=== PATIENT | male | born 1935 | race Caucasian/White ===

== ENCOUNTER 2023-05-07 02:52 | Observation (INO) | payer OTHER, SELFPAY ==
[2023-05-06 23:13] VITALS: BMI 29.0
[2023-05-06 23:24] VITALS: BP 139/58
[2023-05-06 23:28] VITALS: BP 139/58
[2023-05-06 23:29] LABS: % Basophils 0.3 % (0-2); % Eosinophils 0.4 % (0-6); % Immature Granulocytes 0.3 % (0-0.5); % Lymphocytes 23.2 % (20.5-51.1); % Monocytes 13.6 % (1.7-9.3); % Neutrophils 62.2 % (42.2-75.2); Absolute Lymphocytes 1.8 10^3/uL (1.2-3.4); Absolute Neutrophils 4.8 10^3/uL (1.4-6.5); Hematocrit 40.7 % (39.0-52.0); Hemoglobin 14.4 g/dL (13.0-18.0); Mean Corp Hgb Conc. 35.4 g/dL (33.0-37.0); Mean Corpuscular Hgb 30.2 pg (27.0-31.0); Mean Corpuscular Volume 85.3 fL (80.0-94.0); Mean Platelet Volume 10.5 fL (7.4-10.4); Nucleated Red Blood Cells % 0 % (-); Platelet Count 188 10^3/uL (130-400); Red Blood Cell Count 4.77 10^6/uL (4.70-6.10); Red Cell Dist. Width 14.6 % (11.5-14.5); White Blood Cell Count 7.7 10^3/uL (4.8-10.8)
--- NOTE | 2023-05-06 23:34 | ED.GENMED ---
History of Present Illness
<KYE Escalante - Last Filed: 05/07/23 03:17>
General
Chief Complaint: Fall
Source: patient
Exam Limitations: none
Time Seen by Provider: 05/06/23 23:14
Nursing documentation reviewed up to this point in time: agreed with
Travel History
Have you had any contact with someone who has COVID-19?: No
Do you have any symptoms of coronavirus? Fever > 100 degrees, chills, cough, shortness of breath, sore throat, loss of taste or smell, muscle aches, or headache?: No
History of Present Illness
History of Present Illness:
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 Patient reports his first fall he lost his balance and fell backwards and hit his head on the closet door. The second fall, patient was coming out of bathroom and fell onto his left side
and hit his shoulder and legs. He reports he is having mild left sided leg pain. He has also had a low grade fever and cough for few days. He reports he has clear phlegm with his cough. He denies headache, body aches, chills, nausea, vomiting,
diarrhea or blurring vision. No LOC. Patient lives at home with . had similar cough and fever.
If applicable-neuro sx onset
Onset of symptoms known: Yes
Date of onset of symptoms: 05/06/23
Past History
<KYE Escalante - Last Filed: 05/07/23 03:17>
Past History
ED Past Medical History: HTN and Hypercholesterolemia
ED Past Surgical History: None
Social History
Tobacco: Non-smoker
Alcohol: None
Drug: None
Personal:
Living: with family
Review of Systems
<KYE Escalante - Last Filed: 05/07/23 03:17>
Review of Systems
Allergies reviewed?: Yes
All Other Systems: ROS reviewed and negative except as documented in HPI and ROS
Constitutional: Reports fever
EENT: Reports no symptoms
Respiratory: Reports cough
Cardiac: Reports no symptoms
ABD/GI: Reports no symptoms
: Reports no symptoms
Musculoskeletal: Reports muscle pain
Skin: Reports no symptoms
Neurological: Reports no symptoms
Endocrine: Reports no symptoms
Hematologic/Lymphatic: Reports no symptoms
Psychiatric: Reports no symptoms
Phy Exam
<KYE Escalante - Last Filed: 05/07/23 03:17>
General Physical Exam
General Presentation: well appearing and no apparent distress
General age: appears stated age
General Skin: warm and dry
General Habitus: normal
General Mental: alert
General Hydration: appears well hydrated
ENT Exam
ENT Exam: EOMI, TM's normal, pharynx normal and neck supple
Eye Exam
Eye Exam: PERRL, EOMI and conjunctiva normal
Cardiovascular Exam
Cardiovascular Exam: regular rate/rhythm, no edema, no gallop, no murmur and normal peripheral pulses
Pulmonary Exam
Pulmonary Exam: no respiratory distress and other (lower base with crackles )
Gastrointestinal Exam
Gastrointestinal Exam: normal bowel sounds, non tender, soft and non distended
Neurological Exam
Neurological Exam: alert and oriented x3
Musculoskeletal Exam
Musculoskeletal Exam: full ROM and neuro vasc intact
Skin Exam
Skin Exam: normal color, warm/dry and no rash
Psychiatric Exam
Psychiatric Exam: normal mood/affect
Course
<KYE Escalante - Last Filed: 05/07/23 03:17>
Orders/Labs/Results
Orders:
Orders
05/06/23 23:12
Electrocardiogram (*1) Urgent
Reason for Study: Other
Other Reason for Exam: Possible Sepsis
Cardiac Monitoring- Treatment ONCE
IV Insert/Care/Rem.- Treatment PRN
O2 Therapy [RESP] Urgent
Titrate/Wean O2 to maintain O2 sat greater than (%): 93
Special Instructions: TO MAINTAIN CONTINUOUS O2 SATS > OR = 93%
Pulse Ox/cont/shift [RESP] Urgent
Quantity: 1
Special Instructions: CONTINUOUS
05/06/23 23:19
COVID-19 Antigen Urgent
Source: Nasal Swab
Complete Blood Count/With Diff Urgent
Comprehensive Metabolic Panel Urgent
Lactic Acid Q4H
Comment: ON ICE, CANCEL 2ND ORDER IF FIRST LACTIC ACID LEVEL <2
Magnesium Urgent
Comment: ADD ON
Blood Culture Q30M
YOBANY Source: Blood/Venous
Specimen Description:
Comment: FROM 2 SEPARATE SITES
Blood Culture Q30M
YOBANY Source: Blood/Venous
Specimen Description:
Comment: FROM 2 SEPARATE SITES
05/06/23 23:45
0.9% Sodium Chloride 1000 ml [Nss] 2,500 ml IV NOW STA
Acetaminophen [Tylenol] 1,000 mg PO NOW STA
Potassium Chloride [KCl] 40 meq PO NOW STA
05/06/23 23:57
Influenza A+B Rapid Molecular Urgent
YOBANY Source: Nasal Swab
Specimen Description:
05/06/23 23:59
Add On- LAB Urgent
Tests Added?: Mg
Ipratropium/Albuterol Sulfate [Duoneb] 3 ml INH R NOW ONE
05/07/23 00:00
CT Head W/o Iv Contrast Urgent
Reason For Exam: fall, post head injury
05/07/23 00:07
CR Chest - 2 Views Urgent
Reason For Exam: suspected infection
CR Knee - Left 4 Or More View* Urgent
Reason For Exam: fall, ant knee pain, bruising
05/07/23 00:09
Ipratropium/Albuterol Sulfate [Duoneb] 3 ml .ROUTE .STK-MED ONE
05/07/23 01:59
Dexamethasone Sod Phosphate [Decadron] 10 mg IV NOW STA
Piperacillin/Tazo 3.375 Gram [Zosyn] 3.375 gram in 50 ml IV NOW
05/07/23 02:16
Calcium Gluconate 1 gram/100mL [Calcium Gluconate] 1 gram in 100 ml IV ONCE
05/07/23 02:18
Procalcitonin Stat
PCT Algorithmm Indication: Respiratory
05/07/23 02:20
Osmolality Serum [Serum Osmolality] Stat
Osmolality, Random Urine Stat
Urine Sodium Stat
05/07/23 02:41
Admit/Transfer Patient As Directed
Co-Sign Provider:
Level of Care: Observation services
Assign to:: Medical/Surgical
Physician / Group: Christine
Diagnosis: URI, possible PNA
05/07/23 02:42
Code Status As Directed
Resuscitation Status: Full Code
05/07/23 03:15
Lactic Acid Q4H
Comment: ON ICE, CANCEL 2ND ORDER IF FIRST LACTIC ACID LEVEL <2
Abnormal Lab Results
05/06/23
23:19
RDW 14.6 H %
(11.5-14.5)
MPV 10.5 H fL
(7.4-10.4)
Absolute Monos (auto) 1.0 H 10^3/uL
(0.1-0.6)
Monocytes % 13.6 H %
(1.7-9.3)
Sodium 130 L mmol/L
(135-145)
Potassium 3.3 L mmol/L
(3.5-5.1)
Chloride 94 L mmol/L
(98-107)
Glucose 111 H mg/dl
(70-99)
Lactic Acid 3.3 H mmol/L
(0.7-2.0)
Calcium 8.3 L mg/dl
(8.4-10.2)
05/06/23 23:19
05/06/23 23:19
Vital Signs
Initial and Last Documented VS:
Initial Vital Signs
Pulse Resp Pulse Ox
77 25 96
05/06/23 23:12 05/06/23 23:12 05/06/23 23:12
Last Documented Vital Signs
Temp Pulse Resp BP Pulse Ox
100.4 F H 74 19 135/61 94
05/06/23 23:13 05/07/23 02:42 05/07/23 02:42 05/07/23 02:42 05/07/23 02:42
<Carmen Man, DO - Last Filed: 05/07/23 02:04>
Orders/Labs/Results
Orders:
Orders
05/06/23 23:12
Electrocardiogram (*1) Urgent
Reason for Study: Other
Other Reason for Exam: Possible Sepsis
Cardiac Monitoring- Treatment ONCE
IV Insert/Care/Rem.- Treatment PRN
O2 Therapy [RESP] Urgent
Titrate/Wean O2 to maintain O2 sat greater than (%): 93
Special Instructions: TO MAINTAIN CONTINUOUS O2 SATS > OR = 93%
Pulse Ox/cont/shift [RESP] Urgent
Quantity: 1
Special Instructions: CONTINUOUS
05/06/23 23:19
COVID-19 Antigen Urgent
Source: Nasal Swab
Complete Blood Count/With Diff Urgent
Comprehensive Metabolic Panel Urgent
Lactic Acid Q4H
Comment: ON ICE, CANCEL 2ND ORDER IF FIRST LACTIC ACID LEVEL <2
Magnesium Urgent
Comment: ADD ON
Blood Culture Q30M
YOBANY Source: Blood/Venous
Specimen Description:
Comment: FROM 2 SEPARATE SITES
Blood Culture Q30M
YOBANY Source: Blood/Venous
Specimen Description:
Comment: FROM 2 SEPARATE SITES
05/06/23 23:45
0.9% Sodium Chloride 1000 ml [Nss] 2,500 ml IV NOW STA
Acetaminophen [Tylenol] 1,000 mg PO NOW STA
Potassium Chloride [KCl] 40 meq PO NOW STA
05/06/23 23:57
Influenza A+B Rapid Molecular Urgent
YOBANY Source: Nasal Swab
Specimen Description:
05/06/23 23:59
Add On- LAB Urgent
Tests Added?: Mg
Ipratropium/Albuterol Sulfate [Duoneb] 3 ml INH R NOW ONE
05/07/23 00:00
CT Head W/o Iv Contrast Urgent
Reason For Exam: fall, post head injury
05/07/23 00:07
CR Chest - 2 Views Urgent
Reason For Exam: suspected infection
CR Knee - Left 4 Or More View* Urgent
Reason For Exam: fall, ant knee pain, bruising
05/07/23 00:09
Ipratropium/Albuterol Sulfate [Duoneb] 3 ml .ROUTE .STK-MED ONE
05/07/23 01:59
Dexamethasone Sod Phosphate [Decadron] 10 mg IV NOW STA
Piperacillin/Tazo 3.375 Gram [Zosyn] 3.375 gram in 50 ml IV NOW
05/07/23 02:16
Calcium Gluconate 1 gram/100mL [Calcium Gluconate] 1 gram in 100 ml IV ONCE
05/07/23 02:18
Procalcitonin Stat
PCT Algorithmm Indication: Respiratory
05/07/23 02:20
Osmolality Serum [Serum Osmolality] Stat
Osmolality, Random Urine Stat
Urine Sodium Stat
05/07/23 02:41
Admit/Transfer Patient As Directed
Co-Sign Provider:
Level of Care: Observation services
Assign to:: Medical/Surgical
Physician / Group: Christine
Diagnosis: URI, possible PNA
05/07/23 02:42
Code Status As Directed
Resuscitation Status: Full Code
05/07/23 03:15
Lactic Acid Q4H
Comment: ON ICE, CANCEL 2ND ORDER IF FIRST LACTIC ACID LEVEL <2
Abnormal Lab Results
05/06/23
23:19
RDW 14.6 H %
(11.5-14.5)
MPV 10.5 H fL
(7.4-10.4)
Absolute Monos (auto) 1.0 H 10^3/uL
(0.1-0.6)
Monocytes % 13.6 H %
(1.7-9.3)
Sodium 130 L mmol/L
(135-145)
Potassium 3.3 L mmol/L
(3.5-5.1)
Chloride 94 L mmol/L
(98-107)
Glucose 111 H mg/dl
(70-99)
Lactic Acid 3.3 H mmol/L
(0.7-2.0)
Calcium 8.3 L mg/dl
(8.4-10.2)
05/06/23 23:19
05/06/23 23:19
Vital Signs
Initial and Last Documented VS:
Initial Vital Signs
Pulse Resp Pulse Ox
77 25 96
05/06/23 23:12 05/06/23 23:12 05/06/23 23:12
Last Documented Vital Signs
Temp Pulse Resp BP Pulse Ox
100.4 F H 74 19 135/61 94
05/06/23 23:13 05/07/23 02:42 05/07/23 02:42 05/07/23 02:42 05/07/23 02:42
<KYE Escalante - Last Filed: 05/07/23 03:17>
MDM/Problems Addressed
Differential Diagnosis Includes:
URI
PNA
Viral
Fall in elderly
<Carmen Man DO - Last Filed: 05/07/23 02:04>
*Radiology
Radiology exam reviewed: preliminary read by ED provider
*Pulse Oximetry
Patient hypoxic: no
*[employer] Gatherer Interpretation
Rate: normal
Interpretation: normal
Rhythm: sinus
*Critical Care Note
Total Time (30-74mins, 75-104mins- exclusive of procedures): Not Applicable
ED Attending Note
<KYE Escalante - Last Filed: 05/07/23 03:17>
-
Portions of this chart may have been created with voice recognition software.� Occasional wrong word or��sound alike� substitutions may have occurred due to the inherent limitations of voice recognition software.
<Carmen Man DO - Last Filed: 05/07/23 02:04>
ED Attending Note
Patient seen and examined by attending physician: Yes
I performed the substantive portion of visit, reviewed & personally made and approve the management plan that is documented in note by myself or PIA.: Yes
I performed a history and physical exam of patient and discussed management with resident, I reviewed resident's note and agree with documented findings and plan of care.: Yes
ED Attending Note:
88-year-old gentleman who resides at home with his . 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 He does admit to progressive slow
deconditioning, difficulty with ambulation and admits to several month history of bilateral leg and bilateral hand shaking, intention tremor in nature.
More recently however he developed URI symptoms 4 to 5 days ago, contracted from his who began with similar URI symptoms 1 week ago. She has been evaluated by her PCP and diagnosed with a viral URI. Reportedly COVID testing on his was
negative. He has been taking Mucinex over the past 4 days for his symptoms.
This morning, while using his walker he lost his balance, falling backwards onto his buttocks and striking the back of his head on the bathroom door. He denies loss of consciousness. He did require ambulance service to help him stand but declined
ED evaluation at that time. This evening however he lost his balance again falling onto his left side injuring his left knee and left posterior shoulder. He denies recurrent head injury but again was unable to stand requiring EMS and at this time
agreeable to ED evaluation. He has had a frequent harsh nonproductive cough over the past 4 to 5 days, poor oral intake over the past several days but denies nausea nor vomiting, no diarrhea nor constipation.
He denies headache, denies neck nor back pain, denies chest pain.
He takes no anticoagulants save for low-dose aspirin.
Upon arrival to the ED noted to be febrile with oral temperature of 100.4 �F.
GENERAL: 88-year-old gentleman appears his stated age, awake and alert, appears in mild distress. Frequent harsh nonproductive cough is noted. Mild nasal congestion is noted. Son is accompanying.
EYE: pupils equal and reactive. anicteric. There is soft tissue contusion with superficial abrasion left posterior parietal region. Mild local tenderness to palpation.
NECK: Supple, nontender, no midline bony tenderness, no meningismus, no significant adenopathy.
ENT: posterior pharynx is clear, oral mucosa is dry. Mild clear rhinorrhea.
CARDIAC: Regular rate and rhythm. no murmur.
LUNGS: Frequent harsh nonproductive cough. Mild resting tachypnea. Scattered end expiratory wheezing with fine rhonchi left base. There is a small superficial abrasion left posterior shoulder as well as approximately 10 cm superficial abrasion
right posterior scapular region. No focal tenderness to palpation. No palpable crepitus.
ABDOMEN: Soft, nondistended, without focal tenderness, no r/g, no cvat. normoactive BS.
NEUROLOGICAL: Alert and oriented x3, significant chronic atrophy of right lower extremity with orthopedic brace in place right lower leg.
SKIN: Mildly hot to touch and dry, normal color, skin intact. No rash.
MUSCULOSKELETAL: No C/C/E. peripheral pulses are full and equal b/l. There is mild ecchymosis, mild soft tissue swelling left anterior knee with mild local tenderness to palpation. No effusion, no crepitus. Full knee range of motion with
increased pain with flexion greater than 90 degrees. There is no hip tenderness nor thigh tenderness.
PSYCH: Normal and appropriate interaction.
Patient presents after suffering 2 mechanical falls today.
He has history of polio, chronic ambulatory dysfunction requiring walker for ambulation.
Several history of URI and found to be febrile, frequent cough and physical exam concerning for pneumonia left base.
Concern for sepsis/SIRS.
Acute on chronic ambulatory dysfunction.
Recent head injury, concern for intracranial injury thus will check CT of the head.
Left knee contusion, will check x-ray left knee concern for occult patellar fracture.
Will check chest x-ray.
Labs thus far reveal normal white blood cell count, normal H&H.
Mild hyponatremia, mild hypokalemia�likely related to dehydration, poor oral intake, increase in insensible losses with cough and fever.
Lactic acid mildly elevated at 3.3.
Will check COVID and influenza.
Thus far remains hemodynamically stable but meets SIRS criteria.
Will initiate IV normal saline solution fluid bolus, replete potassium orally. Will check magnesium level.
Will give DuoNeb nebulizer for cough.
Due to significant generalized weakness, recurrent falls patient is at significant risk for recurrent falls thus unsafe to return home and will require acute hospitalization.
05/07/2023 0202 AM
Patient continues with frequent cough now productive of whitish thin phlegm.
Repeat Esvin Berkowitz exam he has increased air movement with harsh expiratory wheezing bilaterally, rhonchi bibasilar.
Chest x-ray does not show definitive infiltrate but concern for occult pneumonia thus will initiate IV antibiotics and will initiate IV Decadron for wheezing and continue nebulizer treatments.
CT of the head is unremarkable.
Left knee x-ray is unremarkable.
Will admit to hospitalist service.
Discharge Plan
Departure
Patient Disposition: Admit
Date of Disposition: 05/07/23
Time of Disposition: 02:00
Admit to: Med/Surg
Admit to doctor: Christine
Presentation/result/management discussed w/ accepting MD/DO: Hospitalist
Condition: Serious
Discharge Problem:
Acute asthmatic bronchitis, SIRS (systemic inflammatory response syndrome), Falls frequently, acute on chronic ambulatory dysfunction, Postpolio syndrome, Acute hypokalemia, Acute hyponatremia
Interventions
Interventions:
*Risk Screen - Suicide Last Done: 05/06/23 23:13
*General Assessment Last Done: 05/06/23 23:13
*Neglect/Abuse Screening Last Done: 05/06/23 23:13
ED- Fall Risk Assessment Last Done: 05/07/23 00:44
*ED COVID-19 Vaccine History Last Done: 05/06/23 23:13
ED-Musculoskeletal Assessment Last Done: 05/07/23 00:44
ED- Neurological Assessment Last Done: 05/07/23 00:44
ED-Skin Assessment Last Done: 05/07/23 00:44
[2023-05-06 23:39] LABS: Lactic Acid 3.3 mmol/L (0.7-2.0)
[2023-05-06 23:41] LABS: ALT (SGPT) 27 U/L (0-50); AST (SGOT) 33 U/L (17-59); Albumin 3.9 g/dl (3.5-5.0); Alkaline Phosphatase 99 U/L (38-126); Blood Urea Nitrogen 19 mg/dl (9-20); Calcium 8.3 mg/dl (8.4-10.2); Carbon Dioxide 27 mmol/L (22-30); Chloride 94 mmol/L (98-107); Estimated Creatinine Clearance 59 ml/min; Glucose 111 mg/dl (70-99); Potassium 3.3 mmol/L (3.5-5.1); Sodium 130 mmol/L (135-145); Total Bilirubin 0.9 mg/dl (0.2-1.3); Total Protein 6.6 g/dl (6.3-8.2); eGFR > 60.00
[2023-05-06 23:49] LABS: COVID-19 Antigen Negative (Negative)
[2023-05-06] MEDS: TYLENOL 1000 MG PO (23:55)
[2023-05-06] MEDS: NSS 2500 ML IV (23:56)
[2023-05-06] MEDS: KCL 40 MEQ PO (23:56)
[2023-05-07] VITALS: BP 185/59
[2023-05-07] MEDS: DUONEB 3 ML INH ×3 (00:10→19:09)
[2023-05-07 00:37] LABS: Magnesium 1.9 mg/dl (1.6-2.3)
--- NOTE | 2023-05-07 02:14 | HPS.HSE ---
Family Physician
-
Family Physician: Jimmy Antonio
Chief Complaint
-
Falls
History of Present Illness
88 y/o M with PMHx:
Essential HTN
HLD
Polio
Chronic ambulatory dysfunction
Who presents after 2 recent falls, one of which involved head trauma. Patient mentions over the last week he has had cough productive of clear sputum. Denies fever or shortness of breath. His also had a viral UTI. Denies any other acute
complaints. Denies chest pain, nausea, vomiting, diarrhea, abdominal pain.
Medical History
Past Medical History
Past Medical History: Reports Other (as per HPI)
Past Surgical History: Reports Other (N/A)
Social History
Tobacco: Non-smoker
Alcohol: None
Drug: None
Family History
Family History: Not pertinent
Allergies / Home Medications
Allergies reflects when Allergies were last updated in [facility].
Home Medications with original date entered in [facility]
Allergy/Medication List:
Allergies
Allergy/AdvReac Type Severity Reaction Status Date / Time
No Known Allergies Allergy Verified 07/10/18 01:13
Home Medications
aspirin 81 mg tablet,delayed release (Aspir-Low) 81 mg PO DAILY 04/30/18
coenzyme Q10 100 mg capsule 100 mg PO DAILY 04/30/18
vitamins A,C,W-ebxr-qyhtwj 4,296 mcg-226 mg-90 mg capsule (PreserVision AREDS) 1 cap PO BID 04/30/18
atorvastatin 40 mg tablet 40 mg PO QPM ##30 05/02/18
carvedilol 3.125 mg tablet 3.125 mg PO BID ##60 05/02/18
cholecalciferol (vitamin D3) 50 mcg (2,000 unit) tablet 2,000 unit PO HS 05/28/18
lisinopril 5 mg tablet 40 mg PO DAILY 05/08/19
hydrochlorothiazide 25 mg tablet 25 mg PO DAILY 05/06/23
tamsulosin 0.4 mg capsule (Flomax) 0.4 mg PO DAILY 05/06/23
Review of Systems
-
History Source: Patient
A 12 point ROS was completed and negative except as noted: Yes
Physical Exam
Vital Signs
Vital Signs
Temp Pulse Resp BP Pulse Ox
100.4 F H 66 22 185/59 93
05/06/23 23:13 05/07/23 00:30 05/07/23 00:30 05/07/23 00:00 05/07/23 00:30
Physical Exam
General: Other (.)
Laboratory Results
-
05/06/23 23:19
05/06/23 23:19
Laboratory Results
Lactic Acid 3.3 mmol/L (0.7-2.0) H 05/06/23 23:19
Total Bilirubin 0.9 mg/dl (0.2-1.3) 05/06/23 23:19
AST 33 U/L (17-59) 05/06/23 23:19
ALT 27 U/L (0-50) 05/06/23 23:19
Alkaline Phosphatase 99 U/L (38-126) 05/06/23 23:19
Impression/Plan
-
Gen: NAD, AAOx3.
Eyes: EOMI, no scleral icterus.
Neck: supple.
CV: RRR, +S1/S2, no m/r/g.
Resp: Mild rhonchi bilaterally
Abd: +BS, soft, NT, ND
Skin: No rashes. Abrasion right upper back.
Neuro: CN 2-12 intact, non-focal.
Psych: Normal mood and affect.
CXR (read by me, official read pending): possible, subtle, RLL infiltrate
CT brain: No acute intracranial abnormality
URI with possible RLL PNA:
-COVID/Flu NEG
-currently saturating well on RA
-Await official chest x-ray read
-check Procal
-Decadron 10mg IV given in ED, no need to continue with steroids
-Zosyn given by ER, continue with Rocephin for now
-Duonebs PRN
Essential HTN:
-stop HCTZ
-cont Lisinopril/Coreg
Other problems:
Hyponatremia: Stop HCTZ, IVFs, check Serum/urine Osm, Radha
Hypokalemia: s/p 40meq K in ER
Hypocalcemia: 1g IV Ca
FULL/Lovenox
[2023-05-07] MEDS: DECADRON 10 MG IV (02:21)
[2023-05-07] MEDS: ZOSYN 50 IV (02:21)
[2023-05-07] MEDS: CALCIUM GLUCONATE 100 IV (02:23)
[2023-05-07 02:42] VITALS: BP 135/61
--- NOTE | 2023-05-07 02:46 | EDRN ---
Patient in continent to urine, changed brief and linen, pulled up in bed and new brief placed on patient. Patient did use urinal as well, which was left at bedside for patient.
[2023-05-07 03:42] LABS: Osmolality Serum 284 mOsm/kg (275-300)
[2023-05-07 03:45] LABS: Lactic Acid 1.1 mmol/L (0.7-2.0)
[2023-05-07 04:07] LABS: Procalcitonin < 0.05 ng/ml (0.0-0.25)
[2023-05-07 04:16] VITALS: BP 138/69; BMI 28.5
--- NOTE | 2023-05-07 04:20 | PTCARENOTE ---
Pt arrived from ED via stretcher and pulled over to bed. Pt is AAOx3, VSS, w/o complaints of pain. Pt is oriented to room resting comfortably with call mohamud within reach.
[2023-05-07] MEDS: NSS 1000 IV ×2 (04:30→15:13)
[2023-05-07 05:33] LABS: Osmolality Urine 199 mOsm/kg (300-900)
[2023-05-07 05:35] LABS: Urine Sodium 60 mmol/L (30-90)
[2023-05-07] MEDS: STERILE WATER FOR INJECTION 10 ML IV (05:45)
[2023-05-07] MEDS: ROCEPHIN 1000 MG IV (05:45)
[2023-05-07 07:25] VITALS: BP 116/44
[2023-05-07] MEDS: ASPIR LOW (ENTERIC COATED) 81 MG PO (08:18)
[2023-05-07] MEDS: COREG 3.125 MG PO ×2 (08:18→21:01)
[2023-05-07] MEDS: ZESTRIL 40 MG PO (08:19)
[2023-05-07] MEDS: MIRALAX 17 GRAMS PO (08:19)
[2023-05-07] MEDS: SENOKOT 8.59999999999999964 MG PO (08:19)
[2023-05-07] MEDS: FLOMAX 0.400000000000000022 MG PO (08:19)
[2023-05-07] MEDS: DESENEX/MITRAZOL/ZEASORB 1 APPLIC TOPICAL ×2 (08:24→20:57)
[2023-05-07 08:42] LABS: Blood Urea Nitrogen 15 mg/dl (9-20); Calcium 8.1 mg/dl (8.4-10.2); Carbon Dioxide 24 mmol/L (22-30); Chloride 102 mmol/L (98-107); Estimated Creatinine Clearance 67 ml/min; Glucose 122 mg/dl (70-99); Potassium 3.7 mmol/L (3.5-5.1); Sodium 136 mmol/L (135-145); eGFR > 60.00
--- NOTE | 2023-05-07 13:35 | W.PN.HOSP.TC ---
Today's Communication/Plan
-
see A/P
Assessment / Plan
Assessment / Plan
88 y/o M with PMH Essential HTN, HLD, Polio, chronic ambulatory dysfunction; p/w 2 recent falls, one of which involved head trauma.�
Patient mentioned over the last week, he has had cough productive of clear sputum.�Denies fever or shortness of breath.�
His also had a viral UTI.� Denies any other acute complaints.�
CXR: Minimal increased stranding in the left lung base may represent early pneumonia.
CT head: No acute intracranial abnormality
A/P:
# mechanical fall
Pt c/o L hamstring strain
L knee XR neg for acute fracture or dislocation
Trial of lidocaine patch to apply over the L hamstring area for pain control
PT OT eval
# Viral URI
Saturating well on RA
COVID/Flu NEG, procal negative
s/p Decadron 10mg IV in ED, no need to continue with steroids (no wheezing noted on exam)
s/p Zosyn in ER, then Rocephin. With negative procalcitonin, would stop Rocephin. Can treat with azithromycin for 3 days
Duonebs PRN, add Mucinex, Tessalon PRN for cough
Speech eval
# Essential HTN
stop HCTZ
cont Lisinopril/Coreg
Other problems:
# Hyponatremia: Stop HCTZ, s/p IVFs, sodium level improved with normal range
# Hypokalemia: resolved after repletion
# Hypocalcemia: s/p 1g IV Ca
FULL code
DVT ppx: Lovenox SQ
PT OT eval
DW on the phone
total time spent 51 min
Anticipated Discharge: 24 - 48 hours
Subjective/Interval History
-
Date of Service: May 07, 2023
Objective Data
-
Labs:
Laboratory Results
05/07/23
06:47
Sodium 136
Potassium 3.7
Chloride 102
Carbon Dioxide 24
BUN 15
Creatinine 0.7
Glucose 122 H
Calcium 8.1 L
Vital Signs:
Vital Signs
Temp Pulse Resp BP Pulse Ox
36.8 C 59 20 116/44 94
05/07/23 07:25 05/07/23 08:18 05/07/23 07:25 05/07/23 08:18 05/07/23 07:25
Review of Systems
-
Respiratory: Reports Cough
Musculoskeletal: Reports Other (L hamstring area)
Physical Exam
-
General: Well Developed, Well Nourished, No Apparent Distress, Comfortable and Conversant; Negative Respiratory Distress
HEENT: Normocephalic, Atraumatic, Nose Appears Normal and Ears Appear Normal; Negative Oxygen
Respiratory: Clear to Auscultation and Non Labored Respirations; Negative Wheezes, Crackles or Accessory Resp Muscle Use
Cardiac: Regular Rhythm and S1/S2
GI: Soft, Nontender, Nondistended and Normal Bowel Sounds
Musculoskeletal: Other (R leg smaller in size due to polio)
Skin: Warm and Dry
Neuro: Awake, Alert and Oriented
Psych: Calm and Intact Judgement/Insight
Data Reviewed
-
Diagnostic Radiology: Image personally visualized and interpreted and Report Reviewed by me
Labs: Labs Reviewed by me
--- NOTE | 2023-05-07 14:46 | PTOTSP ---
ST Evaluation Only
Oropharyngeal function appears intact at the bedside
Pt received awake/alert family at bedside. HOB raise upright for PO trials of regular solids/thin liquids. Demo functional mastication and bolus was orally cleared. Thin liquids by straw serial sips swallow appears timely. No overt s/sx of
aspiration observed
Recommend
1. Regular solids/thin liquids
2. Meds oral with sips of water
3. CUSHION WORKER signing off please reconsult as needed
[2023-05-07] MEDS: LIDOCAINE 4% PATCH 1 PATCH TOPICAL (15:12)
[2023-05-07 15:25] VITALS: BP 154/55
[2023-05-07] MEDS: LOVENOX 40 MG SC (17:20)
[2023-05-07] MEDS: LIPITOR 40 MG PO (17:20)
--- NOTE | 2023-05-07 17:35 | CM ---
Alert awake oriented patient who lives with his Allyson who lives in a 2 story home with 1 step to enter and bed and bathroom on first floor. He is assisted in all activities of daily living.He has care givers 4 hours 2x weekly.FERRER given pt copy
. Pt did not sign copy.
Pharmacy [facility]
PCP DR Antonio
PLAN Will depend on PT OT evals
[2023-05-07] MEDS: SENOKOT PO (20:55)
[2023-05-07] MEDS: MUCINEX 1200 MG PO (20:56)
[2023-05-07] MEDS: OCUVITE SOFTGEL 1 CAP PO (21:53)
[2023-05-07 23:33] VITALS: BP 120/53
[2023-05-08] MEDS: NSS 1000 IV ×2 (01:26→11:12)
[2023-05-08 05:46] LABS: Blood Urea Nitrogen 18 mg/dl (9-20); Calcium 7.4 mg/dl (8.4-10.2); Carbon Dioxide 27 mmol/L (22-30); Chloride 105 mmol/L (98-107); Estimated Creatinine Clearance 78 ml/min; Glucose 99 mg/dl (70-99); Potassium 3.1 mmol/L (3.5-5.1); Sodium 137 mmol/L (135-145); eGFR > 60.00
[2023-05-08 07:43] VITALS: BP 142/60
[2023-05-08] MEDS: DUONEB 3 ML INH ×4 (08:10→19:11)
[2023-05-08 08:16] LABS: Magnesium 2.1 mg/dl (1.6-2.3)
[2023-05-08] MEDS: MUCINEX 1200 MG PO ×2 (09:07→21:05)
[2023-05-08] MEDS: DESENEX/MITRAZOL/ZEASORB 1 APPLIC TOPICAL ×2 (09:08→21:03)
[2023-05-08] MEDS: LIDOCAINE 4% PATCH 1 PATCH TOPICAL ×2 (09:08→13:18)
[2023-05-08] MEDS: SENOKOT PO ×2 (09:09→18:59)
[2023-05-08] MEDS: FLOMAX PO ×2 (09:09→09:14)
[2023-05-08] MEDS: MIRALAX PO (09:09)
[2023-05-08] MEDS: OCUVITE SOFTGEL 1 CAP PO ×3 (09:10→21:05)
[2023-05-08] MEDS: ZESTRIL 40 MG PO (09:10)
[2023-05-08] MEDS: KCL 40 MEQ PO (09:11)
[2023-05-08] MEDS: ASPIR LOW (ENTERIC COATED) 81 MG PO (09:11)
[2023-05-08] MEDS: COREG 3.125 MG PO ×2 (09:11→21:05)
[2023-05-08] MEDS: ZITHROMAX 500 MG PO (09:12)
--- NOTE | 2023-05-08 11:21 | CM ---
PT OT ordered.
Daughter Imelda Mason [phone] called and said pt has 8 hours a week on care givers with [facility] which family will set up at [facility].
He uses a brace on his leg due to polio hx.
Dgt thought he will need SNF at [place].
Will wait for PT OT eval and enter SNF as follows .Mike Rangel,[facility].
Daughter explained patient was under Observation.
PLAN Depends on PT OT evals
--- NOTE | 2023-05-08 11:50 | W.PN.HOSP.TC ---
Today's Communication/Plan
-
see A/P
Assessment / Plan
Assessment / Plan
88 y/o M with PMH Essential HTN, HLD, Polio, chronic ambulatory dysfunction; p/w 2 recent falls, one of which involved head trauma.�
Patient mentioned over the last week, he has had cough productive of clear sputum.�Denies fever or shortness of breath.�
His also had a viral UTI.� Denies any other acute complaints.�
CXR: Minimal increased stranding in the left lung base may represent early pneumonia.
CT head: No acute intracranial abnormality
A/P:
# mechanical fall
Pt c/o L hamstring strain, L knee XR neg for acute fracture or dislocation. Cont trial of lidocaine patch over the L hamstring area for pain control.
Pt now c/o coccyx pain, check lumbar/sacral XR. Add lidocaine patch for lower back/coccyx area.
PT OT eval
# Viral URI
Saturating well on RA
COVID/Flu NEG, procal negative
s/p Decadron 10mg IV in ED, restart Decadron 4 mg BID for mild wheezing on exam today
s/p Zosyn in ER, then Rocephin. With negative procalcitonin, would stop Rocephin. Can treat with azithromycin for 3 days
Cont Duonebs, Mucinex, Tessalon PRN for cough
Add vest therapy
Speech eval cleared for regular diet
# Essential HTN
stop HCTZ
cont Lisinopril/Coreg
BP stable
# Hyponatremia, resolved
Stop HCTZ
s/p IVFs,
sodium level today 137 from 130 on admission
# Hypokalemia
replete K
Mag WNL
# Hypocalcemia
s/p 1g IV Ca
Check vit D level
FULL code
DVT ppx: Lovenox SQ
PT OT eval
DW on the phone
Anticipated Discharge: 24 - 48 hours
Subjective/Interval History
-
Date of Service: May 08, 2023
Objective Data
-
Labs:
Laboratory Results
05/08/23
05:07
Sodium 137
Potassium 3.1 L
Chloride 105
Carbon Dioxide 27
BUN 18
Creatinine 0.6 L
Glucose 99
Calcium 7.4 L
Vital Signs:
Vital Signs
Temp Pulse Resp BP Pulse Ox
36.4 C 80 18 142/60 94
05/08/23 07:43 05/08/23 11:21 05/08/23 11:21 05/08/23 07:43 05/08/23 08:21
I&O
05/07/23 05/08/23 05/09/23
06:59 06:59 06:59
Intake Total 1979
Output Total 975 / 975
Balance 1005 / 1005
Review of Systems
-
Respiratory: Reports Cough (improved)
Musculoskeletal: Reports Other (L hamstring area, now coccyx area)
Physical Exam
-
General: Well Developed, Well Nourished, No Apparent Distress, Comfortable and Conversant; Negative Respiratory Distress
HEENT: Normocephalic, Atraumatic, Nose Appears Normal and Ears Appear Normal; Negative Oxygen
Respiratory: Clear to Auscultation, Wheezes and Non Labored Respirations; Negative Crackles or Accessory Resp Muscle Use
Cardiac: Regular Rhythm and S1/S2
GI: Soft, Nontender, Nondistended and Normal Bowel Sounds
Musculoskeletal: Other (R leg smaller in size due to polio)
Skin: Warm and Dry
Neuro: Awake, Alert and Oriented
Psych: Calm and Intact Judgement/Insight
Data Reviewed
-
Diagnostic Radiology: Image personally visualized and interpreted and Report Reviewed by me
Labs: Labs Reviewed by me
[2023-05-08 13:09] VITALS: BP 160/65; PULSE 62
[2023-05-08] MEDS: KCL 20 MEQ PO (13:16)
[2023-05-08] MEDS: DECADRON 4 MG IV ×2 (13:18→23:39)
[2023-05-08 13:21] LABS: Vitamin D, 25-OH*** 25.7 ng/mL (30-80)
[2023-05-08 15:42] VITALS: BP 150/62
[2023-05-08] MEDS: LOVENOX 40 MG SC (17:20)
[2023-05-08] MEDS: LIPITOR 40 MG PO (17:20)
[2023-05-08 23:25] VITALS: BP 147/63
[2023-05-09 07:25] VITALS: BP 149/67
[2023-05-09 07:46] LABS: Blood Urea Nitrogen 17 mg/dl (9-20); Calcium 7.6 mg/dl (8.4-10.2); Carbon Dioxide 22 mmol/L (22-30); Chloride 108 mmol/L (98-107); Estimated Creatinine Clearance 78 ml/min; Glucose 111 mg/dl (70-99); Sodium 135 mmol/L (135-145); eGFR > 60.00
[2023-05-09] MEDS: FLOMAX PO (07:56)
[2023-05-09] MEDS: ZITHROMAX 500 MG PO (07:57)
[2023-05-09] MEDS: ZESTRIL 40 MG PO (07:57)
[2023-05-09] MEDS: SENOKOT PO (07:57)
[2023-05-09] MEDS: MIRALAX PO (07:57)
[2023-05-09] MEDS: COREG 3.125 MG PO ×2 (07:58→20:20)
[2023-05-09] MEDS: OCUVITE SOFTGEL 1 CAP PO ×2 (07:58→20:20)
[2023-05-09] MEDS: MUCINEX 1200 MG PO ×2 (07:59→20:20)
[2023-05-09] MEDS: LIDOCAINE 4% PATCH 1 PATCH TOPICAL ×2 (07:59)
[2023-05-09] MEDS: ASPIR LOW (ENTERIC COATED) 81 MG PO (07:59)
[2023-05-09] MEDS: DESENEX/MITRAZOL/ZEASORB 1 APPLIC TOPICAL ×2 (08:00→20:18)
[2023-05-09] MEDS: DECADRON 4 MG IV (08:00)
[2023-05-09] MEDS: DUONEB 3 ML INH ×2 (08:27→11:20)
--- NOTE | 2023-05-09 09:35 | CON.ORTHO ---
Consultation
-
Date/Time Consultation Requested: 05/08/2023; time unknown
Date/Time Consultation Performed: 05/09/2023; 0730
Requesting Provider: unknown
Performing Provider: Ashley Severino PA-C for Dr. Mary Santos
Reason for Consultation: Sacral fracture
Consultation - Orthopedics
History
Mr. Westbrook is an 88 year old male with PMH of HTN, HLD and polio with baseline RLE weakness and ambulatory dysfunction. He reports he has sustained two falls recently. He fell onto his buttocks and hit his head in the first fall, and fell onto his
left side in the second fall. He presented to ED where x-rays revealed a minimally displaced fracture of his sacrum. He reports overall he is feeling well other than occasional discomfort when sitting and laying in certain positions. He denies
any hip or groin pain, and denies radiating pain, numbness or tingling.
He reports he lives at home with his . He ambulates with the assistance of a walker at baseline and utilized an AFO on his right leg.
Allergies / Home Medications
Allergy/AdvReac Type Severity Reaction Status Date / Time
No Known Allergies Allergy Verified 07/10/18 01:13
Medication Instructions Recorded
coenzyme Q10 100 mg capsule 100 mg PO DAILY Supplement 04/30/18
vitamins A,C,W-fgqb-okeord 4,296 1 cap PO BID Supplement 04/30/18
mcg-226 mg-90 mg capsule
(PreserVision AREDS)
atorvastatin 40 mg tablet 40 mg PO QPM ##30 05/02/18
carvedilol 3.125 mg tablet 3.125 mg PO BID ##60 05/02/18
cholecalciferol (vitamin D3) 50 2,000 unit PO MOWEFR Supplement 05/28/18
mcg (2,000 unit) tablet
hydrochlorothiazide 25 mg tablet 25 mg PO DAILY Fluid 05/06/23
Retention/Swelling/Blood Pressure
ascorbic acid (vitamin C) 500 mg 500 mg PO DAILY Supplement 05/08/23
tablet (Vitamin C)
aspirin 81 mg tablet,delayed 81 mg PO DAILY Blood Clot 05/08/23
release Prevention/Tx
lisinopril 40 mg tablet 40 mg PO DAILY blood pressure 05/08/23
Vital Signs / Lab Results
Temp Pulse Resp BP Pulse Ox
98 F 65 18 149/67 93
05/09/23 07:25 05/09/23 08:31 05/09/23 08:31 05/09/23 07:25 05/09/23 08:31
05/06/23 23:19
05/09/23 06:48
XR Lumbar spine, sacrum and coccyx 05/08/23 IMPRESSION:
Mildly displaced oblique fracture of the inferior sacrum.
Physical Exam:
General: well appearing male in NAD, AAOx3
Head: atraumatic, normocephalic
Eyes: sclera anicteric
Ears: normal hearing
Heart: no edema
Lungs: normal work of breathing, no audible wheezing
Lumbar spine: no tenderness to palpation over the lumbar spine, sacrum or coccyx. No pain with ROM of either hip. Negative SLR bilaterally. Neurovascularly intact distally.
Assessment / Plan
Mildly displaced fracture of sacrum
--Mr. Westbrook did sustain a mildly displaced fracture of his sacrum. This can be managed non-operatively. He may continue weight bearing as tolerated with a walker. I encouraged him to continue working with PT/OT. Continue current pain management
regimen per primary. He may follow up outpatient in 4 weeks for repeat evaluation. Orthopedics will sign off for now. Please reach out with any additional orthopedic questions or concerns.
--- NOTE | 2023-05-09 11:22 | W.PN.HOSP.TC ---
Today's Communication/Plan
-
see A/P
Assessment / Plan
Assessment / Plan
88 y/o M with PMH Essential HTN, HLD, Polio, chronic ambulatory dysfunction; p/w 2 recent falls, one of which involved head trauma.�
Patient mentioned over the last week, he has had cough productive of clear sputum.�Denies fever or shortness of breath.�
His also had a viral UTI.� Denies any other acute complaints.�
CXR: Minimal increased stranding in the left lung base may represent early pneumonia.
CT head: No acute intracranial abnormality
A/P:
# mechanical fall
Pt c/o L hamstring strain, L knee XR neg for acute fracture or dislocation. Cont trial of lidocaine patch over the L hamstring area for pain control.
Pt now c/o coccyx pain, lumbar/sacral XR noted mildly displaced oblique fracture of the inferior sacrum.
Appreciate ortho input: continue weight bearing as tolerated with a walker. Follow up outpatient with ortho in 4 weeks for repeat evaluation.
Cont Tylenol for pain control.
Added lidocaine patch for lower back/coccyx area.
PT OT recc SNF
# Viral URI with improved respiratory symptoms
Saturating well on RA
COVID/Flu NEG, procal negative
s/p Decadron 10mg IV in ED, change Decadron 4 mg BID to prednisone 40 mg starting 05/09
s/p Zosyn in ER, then Rocephin. With negative procalcitonin, would stop Rocephin. Can treat with azithromycin for 3 days
Cont Duonebs, Mucinex, Tessalon PRN for cough
Added vest therapy
Speech eval cleared for regular diet
# Essential HTN
stop HCTZ
cont Lisinopril/Coreg
add Norvasc 2.5 mg daily
BP stable
# Hyponatremia, resolved
Stop HCTZ
s/p IVFs,
sodium level today 135 from 130 on admission
# Hypokalemia
repleted K
Mag WNL
# Hypocalcemia with low vit D level
s/p IV calcium
Start calcium carbonate with vit D
outpt calcium and vit D level follow up
FULL code
DVT ppx: Lovenox SQ
PT OT eval
DW RN
called to update, call not answered
Anticipated Discharge: Within 24 hours
Subjective/Interval History
-
Date of Service: May 09, 2023
Objective Data
-
Labs:
Laboratory Results
05/09/23
06:48
Sodium 135
Potassium 4.0 D
Chloride 108 H
Carbon Dioxide 22
BUN 17
Creatinine 0.6 L
Glucose 111 H
Calcium 7.6 L
Vital Signs:
Vital Signs
Temp Pulse Resp BP Pulse Ox
36.6 C 65 18 149/67 93
05/09/23 07:25 05/09/23 08:31 05/09/23 08:31 05/09/23 07:25 05/09/23 08:31
I&O
05/08/23 05/09/23 05/10/23
06:59 06:59 06:59
Intake Total 1979 / 1979
Output Total 975 / 975 950 / 950
Balance 1005 / 1005 1030 / 1030
[2023-05-09] MEDS: OSCAL 500 + D 500 MG PO (12:04)
[2023-05-09] MEDS: NORVASC 2.5 MG PO (12:04)
[2023-05-09 15:30] VITALS: BP 152/81
--- NOTE | 2023-05-09 17:01 | CM ---
PT OT recommended SNF.
Spoke with daughter Imelda Mason [phone] called she and pt requested [facility], and [facility].
All entered in care port.
Will need auth
Daughter explained patient was under Observation.
PLAN SNF after located and auth obtained
[2023-05-09] MEDS: LOVENOX 40 MG SC (17:26)
[2023-05-09] MEDS: LIPITOR 40 MG PO (17:26)
[2023-05-09 23:33] VITALS: BP 150/72
[2023-05-10 06:53] LABS: Blood Urea Nitrogen 24 mg/dl (9-20); Calcium 8.1 mg/dl (8.4-10.2); Carbon Dioxide 26 mmol/L (22-30); Chloride 102 mmol/L (98-107); Estimated Creatinine Clearance 67 ml/min; Glucose 90 mg/dl (70-99); Potassium 3.6 mmol/L (3.5-5.1); Sodium 136 mmol/L (135-145); eGFR > 60.00
[2023-05-10 07:35] VITALS: BP 163/63
[2023-05-10] MEDS: LIDOCAINE 4% PATCH 1 PATCH TOPICAL ×2 (08:10)
[2023-05-10] MEDS: DESENEX/MITRAZOL/ZEASORB 1 APPLIC TOPICAL (08:11)
[2023-05-10] MEDS: OSCAL 500 + D 500 MG PO (08:12)
[2023-05-10] MEDS: NORVASC 2.5 MG PO (08:12)
[2023-05-10] MEDS: COREG 3.125 MG PO (08:13)
[2023-05-10] MEDS: ASPIR LOW (ENTERIC COATED) 81 MG PO (08:15)
[2023-05-10] MEDS: DELTASONE 40 MG PO (08:15)
[2023-05-10] MEDS: MUCINEX 1200 MG PO (08:15)
[2023-05-10] MEDS: OCUVITE SOFTGEL 1 CAP PO (08:16)
[2023-05-10] MEDS: ZITHROMAX 500 MG PO (08:16)
[2023-05-10] MEDS: ZESTRIL 40 MG PO (08:16)
[2023-05-10] MEDS: FLOMAX PO (08:17)
--- NOTE | 2023-05-10 09:18 | W.PN.HOSP.TC ---
Addendum entered and electronically signed by Cinthia Angel MD 05/10/23 13:33:
Total DC time 35 minutes
Original Note:
Today's Communication/Plan
-
see A/P
Assessment / Plan
Assessment / Plan
88 y/o M with PMH Essential HTN, HLD, Polio, chronic ambulatory dysfunction; p/w 2 recent falls, one of which involved head trauma.�
Patient mentioned over the last week, he has had cough productive of clear sputum.�Denies fever or shortness of breath.�
His also had a viral UTI.� Denies any other acute complaints.�
CXR: Minimal increased stranding in the left lung base may represent early pneumonia.
CT head: No acute intracranial abnormality
A/P:
# mechanical fall
Pt c/o L hamstring strain, L knee XR neg for acute fracture or dislocation. Cont trial of lidocaine patch over the L hamstring area for pain control.
Pt now c/o coccyx pain, lumbar/sacral XR noted mildly displaced oblique fracture of the inferior sacrum.
Appreciate ortho input: continue weight bearing as tolerated with a walker. Follow up outpatient with ortho in 4 weeks for repeat evaluation.
Cont Tylenol for pain control. Added lidocaine patch for lower back/coccyx area.
PT OT recc SNF
# Viral URI with improved respiratory symptoms
Saturating well on RA
COVID/Flu NEG, procal negative
s/p Decadron 10mg IV in ED, changed Decadron 4 mg BID to prednisone 40 mg starting 05/09
s/p Zosyn in ER, then Rocephin. With negative procalcitonin, would stop Rocephin. Can treat with azithromycin for 3 days
Cont Duonebs, Mucinex, Tessalon PRN for cough
Added vest therapy
Speech eval cleared for regular diet
# Essential HTN
stop HCTZ due to low sodium and K
cont Lisinopril/Coreg
added Norvasc 2.5 mg daily, can further increase dose if needed
BP stable
# Hyponatremia, resolved
Stop HCTZ
s/p IVFs,
sodium level today 135 from 130 on admission
# Hypokalemia
repleted K
Mag WNL
# Hypocalcemia with low vit D level
s/p IV calcium
Started calcium carbonate with vit D, can repeat calcium / vit D level outpt
outpt calcium and vit D level follow up
FULL code
DVT ppx: Lovenox SQ
PT OT eval recc SNF
DW RN
updated on the phone
Anticipated Discharge: Today
Subjective/Interval History
-
Date of Service: May 10, 2023
Objective Data
-
Labs:
Laboratory Results
05/10/23
05:24
Sodium 136
Potassium 3.6
Chloride 102
Carbon Dioxide 26
BUN 24 H
Creatinine 0.7
Glucose 90
Calcium 8.1 L
Vital Signs:
Vital Signs
Temp Pulse Resp BP Pulse Ox
37.3 C 62 20 163/63 93
05/10/23 07:35 05/10/23 07:35 05/10/23 07:35 05/10/23 07:35 05/10/23 07:35
I&O
05/09/23 05/10/23 05/11/23
06:59 06:59 06:59
Intake Total 1979 / 1979 900 / 900
Output Total 950 / 950 750 / 750
Balance 1030 / 1030 150 / 150
Review of Systems
-
Respiratory: Denies Cough (improved)
Musculoskeletal: Reports Other (L hamstring area, now coccyx area, both improved )
Physical Exam
-
General: Well Developed, Well Nourished, No Apparent Distress, Comfortable and Conversant; Negative Respiratory Distress
HEENT: Normocephalic, Atraumatic, Nose Appears Normal and Ears Appear Normal; Negative Oxygen
Respiratory: Clear to Auscultation, Wheezes and Non Labored Respirations; Negative Crackles or Accessory Resp Muscle Use
Cardiac: Regular Rhythm and S1/S2
GI: Soft, Nontender, Nondistended and Normal Bowel Sounds
Musculoskeletal: Other (R leg smaller in size due to polio)
Skin: Warm and Dry
Neuro: Awake, Alert and Oriented
Psych: Calm and Intact Judgement/Insight
Data Reviewed
-
Diagnostic Radiology: Image personally visualized and interpreted and Report Reviewed by me
Labs: Labs Reviewed by me
[2023-05-10 09:21] VITALS: BP 163/63; PULSE 62; O2SAT 92
[2023-05-10 09:22] VITALS: BP 163/63; PULSE 62; O2SAT 93
--- NOTE | 2023-05-10 11:45 | CM ---
MD entered order for discharge.
Spoke with [facility] she has a bed . He needs Covid test and auth. notified.
Patient updated on dc plan He is in agreement with and Ambulance need.
Called [facility] at [phone] spoke with Sheila from [facility] He was approved form 05/10/23 to 05/14/23 auth #[id number] [facility] call [phone] .
Ambulance auth # acute care [id number].
[facility] notified.
Pt notified.He will tell his family.
[facility]
report [phone]
fax [phone]
PLAN To [facility] after Covid test.
[2023-05-10 12:14] LABS: COVID-19 Antigen Negative (Negative)
--- NOTE | 2023-05-10 13:20 | W.DCSUMMARY ---
Discharge Summary
Discharge Data
Date of Admission: 05/07/23
Date of Discharge: 05/10/23
-
Pending Results: No
Hospital Course
Principal Diagnosis:
Mechanical fall with mildly displaced oblique fracture of the inferior sacrum.�
Viral upper respiratory tract infection with improved respiratory symptoms during hospital stay.
Hyponatremia, hypokalemia- resolved during hospital stay
Hypocalcemia with low vitamin D level
Chronic Diagnoses:�
Essential hypertension
Hyperlipidemia
Polio with chronic ambulatory dysfunction
Consultations:�
Orthopedic
Procedures:�
None
Clinical course:�
This is a 88 year old male with past medical history as stated above, who presented with mechanical fall at home.
He was also experiencing productive cough and mild shortness of breath likely due to upper respiratory tract infection.
Problem 1:
Mechanical fall with mildly displaced oblique fracture of the inferior sacrum.�
His lumbar/sacral XR noted mildly displaced oblique fracture of the inferior sacrum.�
Per ortho, he can continue weight bearing as tolerated with a walker, and follow up outpatient with ortho in 4 weeks for repeat evaluation.
He can continue Tylenol and lidocaine patch for pain control.
He was discharged to SNF per PT OT recommendation.
Problem 2:
Viral upper respiratory tract infection with improved respiratory symptoms during hospital stay.
The patient had good saturation on room air.
His COVID/Flu tests were negative.
His procalcitonin was also negative.
He received IV Decadron while in the hospital, and was discharged with prednisone 40 mg for 4 more days.
He also received azithromycin for 3 days while in the hospital.
He can continue with Tessalon as needed for cough.
Problem 3:
Hyponatremia, hypokalemia; this could be related to hydrochlorothiazide use.
Hydrochlorothiazide was discontinued.
His electrolytes normalized.
In addition to continuing his prior to admission lisinopril and Coreg, Norvasc 2.5 mg daily was added for better BP control.
As for the rest of his medical problems, they were stable during his hospital stay.
Discharge Plan
-
Patient Disposition: Long Term/SNF
Discharge Diagnosis/Procedures: Mechanical fall with mildly displaced oblique fracture of the inferior sacrum; Viral URI with improved respiratory symptoms; Essential Hypertension; Hyponatremia and Hypokalemia (resolved); Hypocalcemia with low vit D
level
Condition: Fair
Diet: As tolerated
Activity: As tolerated
Driving Restrictions: Not until seen by your Dr
Activity Restrictions/Additional Instructions:
Follow up outpatient with ortho in 4 weeks for repeat evaluation.
Referrals:
Jimmy Antonio MD [Family Provider] - in less than 1 week
Additional Discharge Medication Instructions: Stop HCTZ.
We have added Norvasc 2.5 mg daily for better BP control (increase dose as needed per your PCP).
Continue prednisone 40 mg for 4 more days.
Take Tessalon (benzonatate) as needed for cough.
Prescriptions:
New
prednisone 20 mg Tablet
40 mg PO DAILY 4 Days Qty: 8 0RF
lidocaine 4 % Adhesive Patch,Medicated
1 patch topical DAILY Qty: 30 0RF
Rx Instructions:
apply over lower back/sacral area
amlodipine 2.5 mg Tablet
2.5 mg PO DAILY Qty: 30 0RF
benzonatate 100 mg Capsule
200 mg PO TIDPRN PRN (Reason: cough) Qty: 14 0RF
Continued
PreserVision AREDS 1 CAP capsule
1 cap PO BID
coenzyme Q10 100 MG capsule
100 mg PO DAILY
atorvastatin 40 MG tablet
40 mg PO QPM Qty: 30 11RF
carvedilol 3.125 MG tablet
3.125 mg PO BID Qty: 60 11RF
cholecalciferol (vitamin D3) 2,000 UNIT tablet
2,000 unit PO MOWEFR
aspirin 81 mg Tablet,Delayed Release (Dr/Ec)
81 mg PO DAILY
lisinopril 40 mg tablet
40 mg PO DAILY
ascorbic acid (vitamin C) [Vitamin C] 500 mg Tablet
500 mg PO DAILY
Discontinued
hydrochlorothiazide 25 mg Tablet
25 mg PO DAILY
Discharge Orders:
Discharge Patient (As Directed); Ordered 05/10/23
Ordered By: Cinthia Angel
[2023-05-10 15:44] VITALS: BP 159/64
[2023-05-10] MEDS: LIPITOR 40 MG PO (17:05)
== END 2023-05-10 17:40 ==
LOC: 4 EAST ACU 02:52
PROVIDERS: ADMITTING PHYSICIAN Internal Medicine; ATTENDING PHYSICIAN Internal Medicine; CONSULT PHYSICIAN Orthopaedic Surgery; EMERGENCY PHYSICIAN Emergency Medicine; FAMILY PHYSICIAN Internal Medicine
DX: S32.19XA Other fracture of sacrum, initial encounter for closed fracture (principal); S76.812A Strain of other specified muscles, fascia and tendons at thigh level, left thigh, initial encounter; W18.39XA Other fall on same level, initial encounter; J06.9 Acute upper respiratory infection, unspecified; I10 Essential (primary) hypertension; E87.1 Hypo-osmolality and hyponatremia; E87.6 Hypokalemia; E83.51 Hypocalcemia; E78.00 Pure hypercholesterolemia, unspecified; B91 Sequelae of poliomyelitis; R29.6 Repeated falls; Z11.52 Encounter for screening for COVID-19; Z79.899 Other long term (current) drug therapy
CPT/HCPCS: 70450; 71046; 72100; 72220; 73564; 80048; 80053; 82306; 83605; 83735; 83930; 83935; 84145; 84300; 85025; 87040; 87502; 87811; 92610; 94640; 94669; 96361; 96365; 96375; 97116; 97163; 97167; 97535; 99285; G0378